=== PATIENT | male | born 1960 | race Hispanic/Latino ===

== ENCOUNTER → 2020-01-05 | Outpatient (CLI) | payer BC ==
--- NOTE | 2020-01-05 14:40 | Diagnostic Imaging Report ---
Exam: KUB - 2 views Indication: Right lower quadrant abdominal pain Comparison: None Findings: Nonobstructive bowel gas pattern. No free air. Left lower pole renal calculi measure up to 5 mm. No acute osseous injury. Phleboliths in the pelvis. Impression: Nonobstructive bowel gas pattern. No free air. Left lower pole renal calculi measure up to 5 mm. Signed by: Erica Mccollum MD on 01/05/2020 2:37 PM
== END ==
LOC: RAD 13:34
PROVIDERS: ATTEND Internal Medicine
DX: R10.31 Right lower quadrant pain (principal)
CPT/HCPCS: 74018

== ENCOUNTER → 2020-12-20 | Outpatient (CLI) | payer BC | LOC: RAD 15:42 | PROVIDERS: ATTEND Internal Medicine | DX: D16.02 Benign neoplasm of scapula and long bones of left upper limb (principal); D16.12 Benign neoplasm of short bones of left upper limb ==

== ENCOUNTER → 2023-06-29 | Day surgery (SDC) | payer OTHER ==
[~2023-06-29] MED LIST: ACETAMINOPHEN325 M1 PO; ASPIRIN325 MG PO; ATORVASTATIN CA20 MG PO; CEFTRIAXONE 1 GM VIAL ONE; Docusate Sodium PO; FAMOTIDINE20 MG PO; FENTANYL CITRATE/PF 100MCG/2 ML INJ ONE; IOPAMIDOL 370 MG/ML 100 ML INFUS..BTL INJ ONE; IOPAMIDOL 610MG/1ML 300 MG/ML VIAL IV ONE; KETOROLAC TROMET5 ML OP; LACTATED RINGER'S 1,000 ML ONE; LIDOCAINE HCL 1% LOCAL INJ 20 ML VIAL ONE; LIDOCAINE HCL 2% LOCAL INJ 5 ML SDV VIAL INJ ONE; LISINOPRIL-HCT1 EACH PO; METFORMIN HCL1000 MG PO; METOPROLOL TAR100 MG PO; MIDAZOLAM HCL 2 MG/2 ML VIAL ONE; ONDANSETRON HCL INJ 2MG/ML 2ML 2 MG/ML VIAL ONE; PROPOFOL IV EMULSION 10 MG/ML 20 ML VIAL ONE; ROSUVASTATIN CA20 MG PO; VIGAMOX3 ML OP/OT; VITAMIN D310 MC1 PO
[2023-06-29 08:30] VITALS: BP 123/83; PULSE 75; RESP 19; O2SAT 95
== END | disposition home or self-care (01) ==
LOC: OR 05:13
PROVIDERS: ATTEND Urology
DX: N20.1 Calculus of ureter (principal); N13.30 Unspecified hydronephrosis; Z93.6 Other artificial openings of urinary tract status; N40.1 Benign prostatic hyperplasia with lower urinary tract symptoms; E11.9 Type 2 diabetes mellitus without complications; I10 Essential (primary) hypertension; I25.810 Atherosclerosis of coronary artery bypass graft(s) without angina pectoris; E66.9 Obesity, unspecified; Z79.82 Long term (current) use of aspirin; Z79.84 Long term (current) use of oral hypoglycemic drugs; Z79.899 Other long term (current) drug therapy; Z68.33 Body mass index [BMI] 33.0-33.9, adult; Z95.1 Presence of aortocoronary bypass graft
CPT/HCPCS: 36415; 50389; 52005; 74420; 82948; C1758; J0696; J2001 ×2; J2250; J2405; J2704; J3010; J7121; Q9967 ×2